=== PATIENT | male | born 1970 | race Caucasian/White ===

== ENCOUNTER → 2017-09-03 | Outpatient (CLI) | payer BC | END | disposition home or self-care (01) | LOC: LAB.O 10:41 | PROVIDERS: ATTEND Family Medicine | DX: Z30.2 Encounter for sterilization (principal) ==

== ENCOUNTER → 2017-10-15 | Outpatient (CLI) | payer BC | END | disposition home or self-care (01) | LOC: LAB.O 09:47 | PROVIDERS: ATTEND Family Medicine | DX: Z98.52 Vasectomy status (principal) ==